=== PATIENT | female | born 1985 | race Caucasian/White ===

== ENCOUNTER 2017-04-01 12:50 | Emergency (ER) | payer MEDICAID ==
[~2017-04-01] VITALS: Ht 152.4 cm; Wt 84.9 kg
[2017-04-01 14:45] VITALS: BP 120/64
[2017-04-02 07:48] LABS: RAPID PLASMA REAGIN Non Reactive (Non Reactive)
== END 2017-04-01 14:45 | disposition home or self-care (01) ==
LOC: ED 12:50
PROVIDERS: Emergency Medicine
DX: N73.9 Female pelvic inflammatory disease, unspecified (principal)
CPT/HCPCS: 36415; 87491; 87591; J0696; J1885

== ENCOUNTER 2017-06-26 11:35 | Emergency (ER) | payer SELFPAY ==
[~2017-06-26] VITALS: Ht 152.4 cm; Wt 84.8 kg
[2017-06-26 12:06] VITALS: BP 123/71
== END 2017-06-26 12:44 | disposition home or self-care (01) ==
LOC: ED 11:35
DX: S61.213D Laceration without foreign body of left middle finger without damage to nail, subsequent encounter (principal); W31.89XD Contact with other specified machinery, subsequent encounter; Y99.8 Other external cause status; Y92.89 Other specified places as the place of occurrence of the external cause
CPT/HCPCS: A4570

== ENCOUNTER 2017-07-03 15:13 | Emergency (ER) | payer SELFPAY ==
[2017-07-03 15:54] VITALS: BP 118/64
== END 2017-07-03 15:54 | disposition home or self-care (01) ==
LOC: ED 15:13
DX: S61.213D Laceration without foreign body of left middle finger without damage to nail, subsequent encounter (principal); M79.89 Other specified soft tissue disorders; W31.89XD Contact with other specified machinery, subsequent encounter; Y99.8 Other external cause status; Y92.89 Other specified places as the place of occurrence of the external cause